=== PATIENT | male | born 1970 | race African-American/Black ===

== ENCOUNTER 2016-11-01 18:31 | Emergency (ER) | payer MEDICARE, OTHER ==
[~2016-11-01] VITALS: Ht 198.1 cm; Wt 90.0 kg
[~2016-11-01 18:31] MED LIST: PRED20 PO; TRIA.1%T TOP
[2016-11-01 18:32] VITALS: BP 142/74; PULSE 84; RESP 15; TEMP 98.2; O2SAT 98
[2016-11-01] MEDS ORDERED: PROPARACAINE HCL 0.5% OPHT SOLN 15 ML BTL RIGHT EYE ONE (19:15)
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
[2016-11-01] MEDS ORDERED: ERYTOIN10 RIGHT EYE (19:49)
[2016-11-01] MEDS ORDERED: TETANUS/DIPHTHERIA TOXOID ADULT 0.5 ML VIAL IM ONE (20:00)
== END 2016-11-01 19:57 | disposition home or self-care (01) ==
LOC: NEPB 18:31
DX: S00.251A Superficial foreign body of right eyelid and periocular area, initial encounter (principal); Z23 Encounter for immunization; Z86.79 Personal history of other diseases of the circulatory system; Z87.891 Personal history of nicotine dependence; W45.8XXA Other foreign body or object entering through skin, initial encounter; Y93.55 Activity, bike riding
CPT/HCPCS: 90471; 90714

== ENCOUNTER 2017-01-12 16:24 | Emergency (ER) | payer MEDICAID, MEDICARE, OTHER ==
[~2017-01-12] VITALS: Ht 198.1 cm; Wt 88.5 kg
[~2017-01-12 16:24] MED LIST changes: +ERYTOIN10 RIGHT EYE; -PRED20 PO; -TRIA.1%T TOP
[2017-01-12 16:25] VITALS: BP 136/75; PULSE 84; RESP 18; TEMP 98.6; O2SAT 100
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
[2017-01-12] MEDS ORDERED: CYCL5TAB PO (16:42)
[2017-01-12] MEDS ORDERED: PRED50 PO (16:42)
[2017-01-12] MEDS ORDERED: KETOROLAC TROMETHAMINE 60 MG/2 ML (IM) VIAL IM ONE (16:45)
[2017-01-12] MEDS ORDERED: ORPHENADRINE INJ 60 MG/2 ML AMP IM ONE (16:45)
== END 2017-01-12 18:03 | disposition home or self-care (01) ==
LOC: NEPK 16:24
DX: M54.31 Sciatica, right side (principal)
CPT/HCPCS: 96372; 99284; J1885; J2360

== ENCOUNTER 2017-02-04 15:06 | Emergency (ER) | payer MEDICARE, OTHER ==
[~2017-02-04] VITALS: Ht 198.1 cm; Wt 90.0 kg
[~2017-02-04 15:06] MED LIST changes: +CYCL5TAB PO; +PRED50 PO
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
[2017-02-04 15:25] VITALS: BP 121/76; PULSE 90; RESP 18; TEMP 97.9; O2SAT 98
[2017-02-04] MEDS ORDERED: KETOROLAC TROMETHAMINE 60 MG/2 ML (IM) VIAL IM ONE (15:30)
[2017-02-04] MEDS ORDERED: ORPHENADRINE INJ 60 MG/2 ML AMP IM ONE (15:30)
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
[2017-02-04] MEDS ORDERED: IBUP800T23 PO (16:51)
[2017-02-04] MEDS ORDERED: CYCL5TAB PO (16:51)
[2017-02-04 17:17] VITALS: BP 141/74
== END 2017-02-04 17:30 | disposition home or self-care (01) ==
LOC: NEPD 15:06
DX: S39.012A Strain of muscle, fascia and tendon of lower back, initial encounter (principal); S16.1XXA Strain of muscle, fascia and tendon at neck level, initial encounter; Z87.891 Personal history of nicotine dependence; V78 Bus occupant injured in noncollision transport accident
CPT/HCPCS: 72050; 72110; 96372; 99284; J1885; J2360

== ENCOUNTER 2017-05-27 20:28 | Emergency (ER) | payer SELFPAY ==
[~2017-05-27] VITALS: Ht 198.1 cm; Wt 88.0 kg
[~2017-05-27 20:28] MED LIST changes: +IBUP800T23 PO
[2017-05-27 20:33] VITALS: BP 127/69; PULSE 108; RESP 16; TEMP 98.5; O2SAT 100
[2017-05-27] MEDS ORDERED: IBUPROFEN 800 MG TAB PO ONE (22:00)
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
[2017-05-27] MEDS ORDERED: IBUP800T23 PO (23:02)
== END 2017-05-27 23:20 | disposition home or self-care (01) ==
LOC: NEPD 20:28
DX: S63.501A Unspecified sprain of right wrist, initial encounter (principal); S30.810A Abrasion of lower back and pelvis, initial encounter; M79.641 Pain in right hand; Z86.79 Personal history of other diseases of the circulatory system; Y04.0XXA Assault by unarmed brawl or fight, initial encounter; W01.0XXA Fall on same level from slipping, tripping and stumbling without subsequent striking against object, initial encounter
CPT/HCPCS: 73110; 73130; 99283

== ENCOUNTER 2017-07-23 22:40 | Emergency (ER) | payer SELFPAY ==
[~2017-07-23] VITALS: Ht 198.1 cm; Wt 90.0 kg
[~2017-07-23 22:40] MED LIST changes: +IBUP1TAB7 PO; -IBUP800T23 PO
[2017-07-23 22:41] VITALS: BP 133/85; PULSE 89; RESP 18; TEMP 97.8; O2SAT 99
[2017-07-23] MEDS ORDERED: SODIUM CHLORIDE 0.9% FLUSH 10 ML FLUSH IVF PRN (23:15)
[2017-07-23] MEDS ORDERED: KETOROLAC TROMETHAMINE 30 MG/ML (IVP) VIAL IV PUSH ONE (23:15)
[2017-07-23] MEDS ORDERED: ASPIRIN 81 MG CHEW TAB PO ONE (23:15)
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
--- NOTE | 2017-07-23 23:39 | RADRPT ---
EXAM DATE/TIME: 07/23/2017 23:25 [facility] COMPARISON: CHEST SINGLE AP, December 07, 2015, 1:05. INDICATIONS : Left sided chest pain MEDICAL HISTORY : None. SURGICAL HISTORY : None. ENCOUNTER: Initial ACUITY: 1 day PAIN SCORE: 7/10 LOCATION: Bilateral chest FINDINGS: Portable AP view of the chest demonstrates a normal-sized cardiac silhouette. There is stable linear scar at the left lung base. Stable calcification overlying the left upper quadrant could be in the in ferior lung or spleen. There are stable punctate metallic densities overlying the chest bilaterally. No effusion, consolidation, or pneumothorax is identified. Bones and soft tissues demonstrate no acut e finding. CONCLUSION: Stable chest x-ray. No acute cardiopulmonary abnormality is identified. Floyd Gilbert MD on July 23, 2017 at 23:36 Board Certified Radiologist. This report was verified electronically.
[2017-07-23 23:40] LABS: AUTOMATED NEUTROPHIL # 2.5 TH/MM3 (1.8-7.7); BASOPHIL % 0.5 % (0.0-2.0); EOSINOPHIL # 0.1 TH/MM3 (0-0.4); HEMATOCRIT 37.1 % (39.0-51.0); HEMO FLAGS DIFF FINAL; LYMPH % 37.5 % (9.0-44.0); MEAN CELL VOLUME 83.7 FL (80.0-100.0); MEAN CORPUSCULAR HEMOGLOBIN 27.2 PG (27.0-34.0); MEAN CORPUSCULAR HGB CONC 32.5 % (32.0-36.0); MONO % 13.9 % (0.0-8.0); NEUT % 46.1 % (16.0-70.0); PLATELET COUNT 140 TH/MM3 (150-450); RED BLOOD COUNT 4.44 MIL/MM3 (4.50-5.90); RED CELL DISTRIBUTION WIDTH 12.5 % (11.6-17.2); WHITE BLOOD COUNT 5.4 TH/MM3 (4.0-11.0)
[2017-07-23 23:53] LABS: PROTHROMBIN TIME - PATIENT 10.5 SEC (9.8-11.6)
[2017-07-24 00:05] VITALS: BP 127/67; PULSE 69; RESP 16; O2SAT 98
[2017-07-24 00:05] LABS: ANION GAP 7 MEQ/L (5-15); BICARBONATE 25.7 MEQ/L (21.0-32.0); BLOOD UREA NITROGEN 15 MG/DL (7-18); CHLORIDE 106 MEQ/L (98-107); GLOMERULAR FILTRATION RATE 69 ML/MIN (>89); MAGNESIUM 2.1 MG/DL (1.5-2.5); POTASSIUM 4.1 MEQ/L (3.5-5.1); SODIUM (NA) 139 MEQ/L (136-145)
[2017-07-24 00:07] LABS: CREATINE KINASE 178 U/L (39-308)
[2017-07-24 00:20] LABS: CKMB 2.7 NG/ML (0.5-3.6)
[2017-07-24] MEDS ORDERED: IBUP1TAB7 PO (01:06)
[2017-07-24 01:28] VITALS: BP 122/77; PULSE 79; RESP 22; O2SAT 96
--- NOTE | 2017-07-24 22:24 | EKG ---
Date Performed: 07/23/2017 Time Performed: 22:55:32 PTAGE: 46 years EKG: Sinus rhythm WITH SINUS ARRHYTHMIA NORMAL ECG PREVIOUS TRACING : 12/07/2015 00.40 Compared to prior tracing no significant change DOCTOR: Junior Alcala Interpretating Date/Time 07/24/2017 22:22:04
== END 2017-07-24 01:34 | disposition home or self-care (01) ==
LOC: NEPC 22:40
DX: R07.89 Other chest pain (principal); R06.02 Shortness of breath; Z79.899 Other long term (current) drug therapy; Z86.79 Personal history of other diseases of the circulatory system
CPT/HCPCS: 71010; 80048; 82550; 82552; 83735; 84484; 85025; 85379; 85610; 85730; 93005; 96374; 99285; J1885

== ENCOUNTER 2017-11-01 19:32 | Emergency (ER) | payer SELFPAY ==
[~2017-11-01] VITALS: Ht 198.1 cm; Wt 85.0 kg
[2017-11-01 21:47] VITALS: BP 154/81; PULSE 125; RESP 18; TEMP 102.5; O2SAT 98
[2017-11-01] MEDS ORDERED: SODIUM CHLOR 0.9% 1000 ML INJ 1,000 ML IV ONE ×2 (22:00→23:45)
[2017-11-01] MEDS ORDERED: SODIUM CHLORIDE 0.9% FLUSH 10 ML FLUSH IVF PRN ×2 (22:00→23:45)
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
[2017-11-01] MEDS ORDERED: ZOFR4TAB PO (22:57)
[2017-11-01] MEDS ORDERED: OSEL75 PO (22:57)
[2017-11-01] MEDS ORDERED: OSELTAMIVIR PHOSPHATE 75 MG CAP PO ONE (23:15)
[2017-11-01 23:24] VITALS: BP 150/68; PULSE 122; RESP 18; TEMP 101.4; O2SAT 97
[2017-11-01] MEDS ORDERED: IBUPROFEN 600 MG TAB PO ONE (23:45)
[2017-11-01 23:46] LABS: AUTOMATED NEUTROPHIL # 10.1 TH/MM3 (1.8-7.7); BASOPHIL % 0.2 % (0.0-2.0); EOSINOPHIL % 0.4 % (0.0-4.0); HEMATOCRIT 37.3 % (39.0-51.0); LYMPH % 4.1 % (9.0-44.0); LYMPHOCYTE # 0.5 TH/MM3 (1.0-4.8); MEAN CELL VOLUME 83.3 FL (80.0-100.0); MEAN CORPUSCULAR HEMOGLOBIN 26.7 PG (27.0-34.0); MEAN PLATELET VOLUME 8.8 FL (7.0-11.0); MONO % 4.8 % (0.0-8.0); MONOCYTE # 0.5 TH/MM3 (0-0.9); NEUT % 90.5 % (16.0-70.0); PLATELET COUNT 123 TH/MM3 (150-450); RED BLOOD COUNT 4.48 MIL/MM3 (4.50-5.90); RED CELL DISTRIBUTION WIDTH 12.7 % (11.6-17.2); WHITE BLOOD COUNT 11.1 TH/MM3 (4.0-11.0)
[2017-11-02 00:06] LABS: BICARBONATE 27.6 MEQ/L (21.0-32.0); CALCIUM 8.9 MG/DL (8.5-10.1); CREATININE 1.28 MG/DL (0.60-1.30)
[2017-11-02 01:37] VITALS: BP 139/65; PULSE 119; RESP 22; TEMP 100.6; O2SAT 97
[2017-11-02] MEDS ORDERED: PROCHLORPERAZINE INJ 10 MG/2 ML VIAL IVP ONE (02:30)
[2017-11-02] MEDS ORDERED: diphenhydrAMINE HCL 50 MG/ML VIAL IVP ONE (02:30)
--- NOTE | 2017-11-02 03:06 | RADRPT ---
EXAM DATE/TIME: 11/02/2017 02:54 [facility] COMPARISON: No previous studies available for comparison. INDICATIONS : Cephalgia; dizziness. RADIATION DOSE: 56.35 CTDIvol (mGy) MEDICAL HISTORY : Cardiovascular disease. SURGICAL HISTORY : None. ENCOUNTER: Initial ACUITY: 1 day PAIN SCALE: 8/10 LOCATION: cranial TECHNIQUE: Multiple contiguous axial images were obtained of the head. Using automated exposure control and adj ustment of the mA and/or kV according to patient size, radiation dose was kept as low as reasonably a chievable to obtain optimal diagnostic quality images. DICOM format image data is available electro nically for review and comparison. FINDINGS: CEREBRUM: The ventricles are normal for age. No evidence of midline shift, mass lesion, hemorrhage or acute in farction. No extra-axial fluid collections are seen. POSTERIOR FOSSA: The cerebellum and brainstem are intact. The 4th ventricle is midline. The cerebellopontine angle i s unremarkable. EXTRACRANIAL: The visualized portion of the orbits is intact. SKULL: The calvaria is intact. No evidence of skull fracture. CONCLUSION: Normal examination. Giorgi White Jr., MD on November 02, 2017 at 3:04 Board Certified Radiologist. This report was verified electronically.
--- NOTE | 2017-11-02 04:08 | PD ---
Data Data Last Documented VS Vital Signs Date Time Temp Pulse Resp B/P (MAP) Pulse Ox O2 Delivery O2 Flow Rate FiO2 11/02/17 01:37 100.6 119 22 139/65 (89) 97 Room Air Orders Orders Electrocardiogram (11/01/17 21:53) Ecg Monitoring (11/01/17 21:53) Bilateral Bp Monitoring (11/01/17 21:53) Iv Access Insert/Monitor (11/01/17 21:53) Oximetry (11/01/17 21:53) Sodium Chloride 0.9% Flush (Ns Flush) (11/01/17 22:00) Chest, Pa & Lat (11/01/17 21:53) Influenzae A/B Antigen (11/01/17 21:53) Sodium Chlor 0.9% 1000 Ml Inj (Ns 1000 M (11/01/17 22:00) Ed Discharge Order (11/01/17 22:59) Oseltamivir (Tamiflu) (11/01/17 23:15) Basic Metabolic Panel (Bmp) (11/01/17 23:31) Complete Blood Count With Diff (11/01/17 23:31) Sodium Chloride 0.9% Flush (Ns Flush) (11/01/17 23:45) Sodium Chlor 0.9% 1000 Ml Inj (Ns 1000 M (11/01/17 23:45) Ibuprofen (Motrin) (11/01/17 23:45) Ct Brain W/O Iv Contrast(Rout) (11/02/17 02:18) Prochlorperazine Inj (Compazine Inj) (11/02/17 02:30) Diphenhydramine Inj (Benadryl Inj) (11/02/17 02:30) Labs Laboratory Tests Test 11/01/17 22:00 White Blood Count 11.1 TH/MM3 Red Blood Count 4.48 MIL/MM3 Hemoglobin 12.0 GM/DL Hematocrit 37.3 % Mean Corpuscular Volume 83.3 FL Mean Corpuscular Hemoglobin 26.7 PG Mean Corpuscular Hemoglobin Concent 32.0 % Red Cell Distribution Width 12.7 % Platelet Count 123 TH/MM3 Mean Platelet Volume 8.8 FL Neutrophils (%) (Auto) 90.5 % Lymphocytes (%) (Auto) 4.1 % Monocytes (%) (Auto) 4.8 % Eosinophils (%) (Auto) 0.4 % Basophils (%) (Auto) 0.2 % Neutrophils # (Auto) 10.1 TH/MM3 Lymphocytes # (Auto) 0.5 TH/MM3 Monocytes # (Auto) 0.5 TH/MM3 Eosinophils # (Auto) 0.0 TH/MM3 Basophils # (Auto) 0.0 TH/MM3 CBC Comment DIFF FINAL Differential Comment Blood Urea Nitrogen 17 MG/DL Creatinine 1.28 MG/DL Random Glucose 110 MG/DL Calcium Level 8.9 MG/DL Sodium Level 139 MEQ/L Potassium Level 3.4 MEQ/L Chloride Level 101 MEQ/L Carbon Dioxide Level 27.6 MEQ/L Anion Gap 10 MEQ/L Estimat Glomerular Filtration Rate 73 ML/MIN [facility] Medical Record Reviewed: Yes Supervised Visit with FUENTES: Yes Narrative Course CBC & BMP Diagram 11/01/17 22:00 Calcium Level 8.[address] 11/02/17 0218 Signed Impressions: Service Date/Time: Thursday, November 02, 2017 02:54 - CONCLUSION: Normal examination. Giorgi White Jr., MD Chest X-Ray 11/01/17 [id number] Signed Impressions: Service Date/Time: Wednesday, November 01, 2017 22:11 - CONCLUSION: No acute cardiopulmonary disease demonstrated. Floyd Carolina MD Patient rested in the ER for a few hours and at the time of my reassessment complained of headache. Cephalgia therapy ordered and significant improvement achieved. Heart rate dropped down to about 100. Patient has been seen here before multiple times for headache related complaints. Diagnosis Primary Impression: Viral syndrome Referrals: Primary Care Physician Patient Instructions: General Instructions Departure Forms: Work Release, Enter return to work date: Tests/Procedures Additional Instruction: Follow up with your primary care physician within 2-3 days. Continue tylenol and motrin per package instructions for body aches and fever. Ensure adequate fluid intake and proper nutrition. Scripts Ondansetron (Zofran) 4 Mg Tab 4 MG PO Q8HR Y for NAUSEA OR VOMITING for 3 Days, TAB 0 Refills Prov: Aisha Adames 11/01/17 Oseltamivir (Tamiflu) 75 Mg Cap 75 MG PO BID for Mgmt Viral Infection for 5 Days, #10 CAP 0 Refills Prov: Aisha Adames 11/01/17 Disposition: 01 DISCHARGE HOME Condition: Stable Bryan Bustillos MD Nov 02, 2017 04:08
[2017-11-02 04:16] VITALS: BP 136/78; TEMP 99.8
--- NOTE | 2017-11-02 23:32 | EKG ---
Date Performed: 11/01/2017 Time Performed: 22:02:59 PTAGE: 47 years EKG: SINUS TACHYCARDIA NONSPECIFIC T-WAVE ABNORMALITY ABNORMAL RHYTHM ECG PREVIOUS TRACING : 07/23/2017 22.55 Compared to previous tracing SINUS TACHYCARDIA IS NEW DOCTOR: Junior Alcala Interpretating Date/Time 11/02/2017 23:30:50
== END 2017-11-02 04:17 | disposition home or self-care (01) ==
LOC: NEPC 19:32
DX: B34.9 Viral infection, unspecified (principal)
CPT/HCPCS: 70450; 71046; 80048; 85025; 87804; 93005; 96361; 96374; 96375; 99285; J0780; J1200; J7030